=== PATIENT | male | born 1985 | race Caucasian/White ===

== ENCOUNTER 2024-10-02 16:17 | Emergency (ER) | payer MEDICARE, OTHER ==
[~2024-10-02] VITALS: Ht 175.3 cm; Wt 89.6 kg
[2024-10-02] MEDS ORDERED: QUETIAPINE FUMA25 MG PO (17:40)
[2024-10-02] MEDS ORDERED: METAMUCIL0.4 GM PO (17:40)
[2024-10-02] MEDS ORDERED: LURASIDONE HCL120 MG PO (17:40)
[2024-10-02] MEDS ORDERED: LORATADINE10 MG PO (17:40)
[2024-10-02] MEDS ORDERED: TETRACAINE HCL 0.5% 4 ML BTL OD SCH (17:45)
[2024-10-02] MEDS ORDERED: FLUORESCEIN SOD 1 EA STRP OD ONE (17:45)
[2024-10-02] MEDS ORDERED: ERYTHROMYCIN1 GM OD (18:06)
[2024-10-02 18:15] VITALS: BP 120/84
[2024-10-02] MEDS ORDERED: ERYTHROMYCIN 1 GM TUBE OD ONE (18:15)
== END 2024-10-02 18:17 | disposition home or self-care (01) ==
LOC: ED 16:17
DX: S05.01XA Injury of conjunctiva and corneal abrasion without foreign body, right eye, initial encounter (principal); W44.F4XA Insect entering into or through a natural orifice, initial encounter; Z79.899 Other long term (current) drug therapy; Z88.5 Allergy status to narcotic agent
CPT/HCPCS: 99283